=== PATIENT | female | born 1965 | race African-American/Black ===

== ENCOUNTER 2017-08-04 15:53 | Emergency (ER) | payer SELFPAY ==
[~2017-08-04] VITALS: Ht 165.1 cm; Wt 118.0 kg
[2017-08-04 16:13] VITALS: BP 155/91; PULSE 104; RESP 18; TEMP 98.4; O2SAT 97
== END 2017-08-04 17:11 | disposition left against medical advice (07) ==
LOC: NED 15:53
DX: M54.9 Dorsalgia, unspecified (principal); Z53.21 Procedure and treatment not carried out due to patient leaving prior to being seen by health care provider
CPT/HCPCS: 99281

== ENCOUNTER 2017-08-23 15:28 | Emergency (ER) | payer SELFPAY ==
[2017-08-23 15:47] VITALS: BP 168/106; PULSE 88; RESP 20; TEMP 98.8; O2SAT 96
--- NOTE | 2017-08-23 16:27 | PD ---
HPI Chief Complaint: Pain: Acute or Chronic Time Seen by Provider: 16:16 Travel History International Travel<30 days: No Contact w/Intl Traveler<30days: No Traveled to known affect area: No History of Present Illness HPI 52-year-old female with a history of chronic low back pain presents to the emergency room for evaluation of the pain. States she developed acute exacerbation of chronic pain 2 days ago upon standing out of bed. Since then she has had severe, sharp, stabbing pain to her lower back. Radiates down her right lower extremity. Pain is constant with no alleviating factors. Worsened with certain range of motion. She has been taking 800 mg ibuprofen and her prescribed Flexeril without relief in symptoms. She has history of diabetes and hypertension. Patient denies lower extremity paresthesias, saddle anesthesia, loss of bowel or bladder control, IV drug use, weight loss, night sweats, fever, chills, nausea, vomiting. Patient states her primary care physician wants her to see a neurologist but she cannot afford to. PFSH Past Medical History Diabetes: Yes Patient Takes Glucophage: Yes Hypertension: Yes Tetanus Vaccination: < 5 Years ?: Not Past Surgical History Appendectomy: Yes Section: Yes (x 3) Social History Alcohol Use: No Tobacco Use: No Substance Use: No Allergies-Medications (Allergen,Severity, Reaction): Coded Allergies: No Known Allergies (Unverified , 08/23/17) Reported Meds & Prescriptions Reported Meds & Active Scripts Active Active Prescriptions or Reported Medications Unobtainable Review of Systems Except as stated in HPI: all other systems reviewed are Neg Physical Exam Narrative GENERAL: Well-nourished, well-developed female in no acute distress. Afebrile. Ambulatory. Crying in pain SKIN: Focused skin assessment warm/dry. No erythema or ecchymosis. HEAD: Normocephalic. EYES: No scleral icterus. No injection or drainage. NECK: Supple, trachea midline. No JVD or lymphadenopathy. CARDIOVASCULAR: Regular rate and rhythm without murmurs, gallops, or rubs. RESPIRATORY: Breath sounds equal bilaterally. No accessory muscle use. BACK: No CVA tenderness. No rash. No point tenderness on palpation of the spine. 2+ patellar and Achilles reflexes are equal bilaterally. Positive straight leg raise on the right. Data Data Last Documented VS Vital Signs Date Time Temp Pulse Resp B/P (MAP) Pulse Ox O2 Delivery O2 Flow Rate FiO2 08/23/17 15:47 98.8 88 20 168/106 (126) 96 MDM Medical Decision Making Medical Screen Exam Complete: Yes Emergency Medical Condition: Yes Medical Record Reviewed: Yes Differential Diagnosis Chronic back pain, muscle spasm, strain, contusion, fracture Narrative Course 52-year-old female with history of chronic low back pain presents to the emergency room for evaluation of the same. Exacerbation started 2 days ago without trauma or injury. No red flag symptoms. No indication for imaging. Patient is crying in the emergency room. She has tenderness to palpation of the lower lumbar region. Positive straight leg raise on the right. 2+ patellar and Achilles reflexes are equal bilaterally. Patient was informed we do not treat chronic pain in the emergency room. She was given Lortab and Norflex and told to follow-up with her primary care physician for outpatient referral to pain management. She understands and agrees to plan. Diagnosis Primary Impression: Chronic back pain Qualified Codes: M54.41 - Lumbago with sciatica, right side; G89.29 - Other chronic pain Referrals: Primary Care Physician Additional Instructions: Rest and drink plenty of fluids. Take ibuprofen with food as directed, as needed for pain. Apply ice to the affected area for 20 minutes at a time, as needed for pain and swelling. Follow-up with a primary care physician. Return to the emergency room for worsening symptoms. Med/Other Pt SpecificInfo: Prescription(s) given Scripts Unable to Obtain Active Prescriptions or Reported Meds Disposition: 01 DISCHARGE HOME Condition: Stable Caty Claros Aug 23, 2017 16:27
[2017-08-23] MEDS ORDERED: ACETAMINOPHEN/HYDROcodone 325 MG/5 MG TAB PO ONE (16:30)
[2017-08-23] MEDS ORDERED: ORPHENADRINE INJ 60 MG/2 ML AMP IM ONE (16:30)
== END 2017-08-23 17:02 | disposition home or self-care (01) ==
LOC: NEPK 15:28
DX: M54.41 Lumbago with sciatica, right side (principal); G89.29 Other chronic pain; I10 Essential (primary) hypertension; E11.9 Type 2 diabetes mellitus without complications
CPT/HCPCS: 96372; 99283; J2360